=== PATIENT | male | born 1965 | race Caucasian/White ===

== ENCOUNTER 2025-04-02 06:17 | Day surgery (SDC) | payer BC, SELFPAY | END 2025-04-02 12:49 | disposition home or self-care (01) | LOC: GI 06:17 | PROVIDERS: ATTENDING PHYSICIAN Internal Medicine Gastroenterology | DX: D50.9 Iron deficiency anemia, unspecified (principal); K57.30 Diverticulosis of large intestine without perforation or abscess without bleeding; K64.8 Other hemorrhoids; K44.9 Diaphragmatic hernia without obstruction or gangrene; K29.70 Gastritis, unspecified, without bleeding; K63.5 Polyp of colon; K29.50 Unspecified chronic gastritis without bleeding; K31.9 Disease of stomach and duodenum, unspecified | CPT/HCPCS: 45380; 43239; 88305; 88342 ==

== ENCOUNTER 2025-05-08 20:31 | Emergency (ER) | payer BC, SELFPAY ==
[2025-05-08 20:33] VITALS: BP 192/118
[2025-05-08 21:07] LABS: Hematocrit 37.2 % (39.0-52.0); Hemoglobin 11.5 g/dL (13.0-18.0); Mean Corp Hgb Conc. 30.9 g/dL (33.0-37.0); Mean Corpuscular Volume 72.2 fL (80.0-94.0); Nucleated Red Blood Cells % 0 % (-); Platelet Count 248 10^3/uL (130-400); Red Cell Dist. Width 27.6 % (11.5-14.5)
[2025-05-08 21:08] LABS: ALT (SGPT) 20 U/L (0-50); AST (SGOT) 28 U/L (17-59); Albumin 4.4 g/dl (3.5-5.0); Alkaline Phosphatase 89 U/L (38-126); Blood Urea Nitrogen 25 mg/dl (9-20); Calcium 8.6 mg/dl (8.4-10.2); Carbon Dioxide 24 mmol/L (22-30); Chloride 106 mmol/L (98-107); Glucose 102 mg/dl (70-99); Potassium 4.2 mmol/L (3.5-5.1); Sodium 136 mmol/L (135-145); Total Protein 7.0 g/dl (6.3-8.2); eGFR > 60.00
[2025-05-08 21:18] LABS: Troponin I < 0.012 ng/ml
[2025-05-08 21:26] LABS: Anisocytosis 1+; Macrocytosis 1+; Microcytosis 1+; Normal RBC Morphology No
[2025-05-08 21:27] LABS: Ovalocytes Slight
--- NOTE | 2025-05-08 23:41 | ED.GENMED ---
History of Present Illness
General
Chief Complaint: Dizziness
Source: patient
Exam Limitations: none
Time Seen by Provider: 05/08/25 23:41
Nursing documentation reviewed up to this point in time: agreed with
History of Present Illness
History of Present Illness:
Note:
CHIEF COMPLAINT(S)
Dizziness and vertigo
HISTORY OF PRESENT ILLNESS
The patient is a 59-year-old male with a history of hypertension and anemia, presenting with dizziness and vertigo. The symptoms began around 6:37 PM with a sensation described as the room spinning and light-headedness. The patient attempted to
self-manage the symptoms by taking a decongestant (Claritin) and resting. He noted that the spinning sensation subsided, but the light-headedness persisted. He later went to bed at approximately 8:00 PM. Upon waking, the spinning sensation and
light-headedness recurred but eventually resolved, and the patient currently feels well with no lightheadedness or dizziness. This episode mirrors a similar event that occurred 15-20 years ago, which resolved spontaneously without medical
intervention. The patient reported a brief self-assessment using his [employer] blood pressure monitor, which showed elevated readings (around 156 systolic), which have since decreased.
He denies recent illness, chest pain, shortness of breath, or visual disturbances. He also reports having received a normal stress test result two weeks ago. No recent changes to the patients antihypertensive medication regimen (Losartan), with the
last medication adjustment involving timing changes. The patient is currently undergoing treatment for anemia with iron infusions, which ended in April. No recent significant blood pressure medication adjustments were reported, although he mentioned
a slight alteration in medication schedule. The patient denies neck pain, trouble swallowing, double vision, paresthesias in upper or lower extremities, difficulty ambulating. Patient reports that for several hours, he has been asymptomatic. He
denies any headaches. He states that he feels back to his normal self.
SOCIAL HISTORY
- The patient reports previous tobacco use but states he ceased using tobacco approximately four years ago.
- The patient consumes caffeine, specifically 6 ounces per household serving and has alcohol intake inconsistently, noted as not in the past week.
- The patient uses medical marijuana.
REVIEW OF SYSTEMS
See HPI
PHYSICAL EXAM
Nursing notes reviewed and vital signs reviewed.
General: Patient is well appearing and in no acute distress; non-toxic
Skin: Warm and dry, no rashes or lesions
Head: Normocephalic, atraumatic
Eyes: Sclera non-icteric. EOMs intact.
Cardiac: Regular rate and rhythm, no murmurs
Peripheral Vascular: No lower extremity swelling or edema
Pulm: Normal respiratory effort, no wheezes, rales, rhonchi
Abdomen: No abdominal tenderness to palpation
Neuro: CN II-XII intact, no focal neurologic deficits. Normal finger-nose, [id number]-ee-mekl testing. Normal gait. Normal speech.
Psychiatric: Appropriate mood and affect.
PROBLEM LIST
Acute:
- Vertigo/Dizziness resolved
- Elevated blood pressure (transient)
Chronic:
- Hypertension
- Anemia
PLAN
- Consider referral to vestibular therapy for potential inner ear issues if symptoms recur.
- Follow up with a neurologist or Ear, Nose, and Throat specialist for further evaluation.
- Patient advised to return to emergency room if symptoms such as severe dizziness, numbness, weakness, or difficulty swallowing occur.
- Monitor blood pressure and continue current hypertension management.
- Continue following treatment for anemia as previously prescribed.
DIFFERENTIAL DIAGNOSIS
The Differential Diagnosis includes, in no particular order and is not limited to:
1. Benign Paroxysmal Positional Vertigo
2. Vestibular Neuritis
3. Labyrinthitis
4. Orthostatic Hypotension
5. Transient Ischemic Attack
6. Meniere�s Disease
7. Anemia-related dizziness
8. Drug-induced dizziness
9. Hypertensive crisis
10. Dehydration
CHART REVIEW
Reviewed endoscopy procedure from 04/08/2025 patient seen for upper endoscopy was found to have a large hiatal hernia with mild inflammation characterized
Reviewed ER physician augmentation from 05/23/2013 patient seen for abdominal pain, reviewed discharge summary from , patient seen for excessive vertigo he was noted to have a severe headache as well, patient was given IV medications and IV
fluids and did start to feel better and he had an MRI of the brain which was performed and this revealed no evidence of acute infarct or abnormality his blood work was unremarkable and he was discharged
MDM/DISPOSITION
The patient is a 59-year-old male with a history of hypertension and anemia, presenting with dizziness and vertigo. This occurred for around 3 hours and has since resolved. Patient reports that at the time the symptoms were worse if he opened his
eyes and turned his head. Patient reports that he has been asymptomatic for a few hours now and has felt well while he has been in the ER. On physical exam he is well-appearing in no acute distress. He has no focal neurologic deficits he is
normal finger-nose, normal [id number] testing he demonstrates normal speech and normal gait. He initially was acutely hypertensive upon arrival however his blood pressure came down without acute intervention. His blood work shows mild anemia
which patient has a history of. He does have a mildly elevated BUN/creatinine ratio, did discuss hydration at home. He also had troponin which was done which was undetectable however he never had chest pain. He had a ECG which showed normal sinus
rhythm with no arrhythmia. Suspect patient's symptoms related to benign paroxysmal positional vertigo versus vestibular neuritis versus dehydration. Do not suspect acute posterior CVA. Discussed strict return precautions. Do not feel that CAT
scan head is indicated at this time and patient is feeling much better. Discussed case with my ED attending. Patient stable for discharge.
Past History
Past History
ED Past Medical History: None
ED Past Surgical History: Orthopedic
Social History
Tobacco: Non-smoker
Alcohol: None
Drug: None
Personal:
Living: with family
Review of Systems
Review of Systems
All Other Systems: ROS reviewed and negative except as documented in HPI and ROS
Phy Exam
Physical Exam
Physical Exam:
see hpi
Course
Orders/Labs/Results
Orders:
Orders
05/08/25 20:35
Electrocardiogram (*1) Urgent
Reason for Study: Chest Pain
Cardiac Monitoring- Treatment ONCE
EKG- Treatment ONCE
IV Insert/Care/Rem.- Treatment PRN
O2 Therapy [RESP] Urgent
Titrate/Wean O2 to maintain O2 sat greater than (%): 90
Special Instructions: Maintain sats >/=90%
Pulse Ox/spot Check [RESP] Urgent
Quantity: 1
Special Instructions: ON ROOM AIR
05/08/25 20:44
Complete Blood Count/With Diff Urgent
Comprehensive Metabolic Panel Urgent
Troponin I Urgent
Abnormal Lab Results
05/08/25
20:44
Hgb 11.5 L g/dL
(13.0-18.0)
Hct 37.2 L %
(39.0-52.0)
MCV 72.2 L fL
(80.0-94.0)
MCH 22.3 L pg
(27.0-31.0)
MCHC 30.9 L g/dL
(33.0-37.0)
RDW 27.6 H %
(11.5-14.5)
Absolute Neuts (auto) 6.7 H 10^3/uL
(1.4-6.5)
Neutrophils % 75.4 H %
(42.2-75.2)
Lymphocytes % 16.7 L %
(20.5-51.1)
BUN 25 H mg/dl
(9-20)
Glucose 102 H mg/dl
(70-99)
05/08/25 20:44
05/08/25 20:44
Vital Signs
Initial and Last Documented VS:
Initial Vital Signs
Temp Pulse Resp BP Pulse Ox
98.3 F 65 18 192/118 100
05/08/25 20:33 05/08/25 20:33 05/08/25 20:33 05/08/25 20:33 05/08/25 20:33
Last Documented Vital Signs
Temp Pulse Resp BP Pulse Ox
98.3 F 69 16 148/97 96
05/08/25 20:33 05/09/25 00:15 05/09/25 00:15 05/09/25 00:00 05/09/25 00:15
*Pulse Oximetry
SaO2: 100
Oxygen Mode of Delivery: Room air
Patient hypoxic: no
*Critical Care Note
Total Time (30-74mins, 75-104mins- exclusive of procedures): Not Applicable
ED Attending Note
-
Portions of this chart may have been created with voice recognition software.� Occasional wrong word or��sound alike� substitutions may have occurred due to the inherent limitations of voice recognition software.
Discharge Plan
Departure
Patient Disposition: Home (Routine Discharge)
Date of Disposition: 05/09/25
Time of Disposition: 00:16
Patient with high blood pressure during this ER visit?: Yes
Condition: Fair
Discharge Problem:
Dizziness
Instructions: Vertigo (a Type of Dizziness) (DC), BLOOD PRESSURE
Prescriptions:
No Action
acetaminophen 500 mg Tablet
1,000 mg PO Q6H PRN (Reason: pain)
naproxen sodium [Aleve] 220 mg Tablet
440 mg PO PRN PRN (Reason: pain)
Medical Marijuana
1 dose inhalation HS
Referrals:
Sofia Buckley MD [Non-Admitting Privileges, Neurology] - Call in 1-3 days for appt
Activity Restrictions/Additional Instructions:
Please continue to monitor your blood pressure at home and write down a log to bring to your primary care provider.
Your blood work is unremarkable. Please stay well-hydrated.
Please follow-up with your primary care provider with your scheduled appointment.
PLEASE RETURN TO THE EMERGENCY DEPARTMENT SHOULD YOU DEVELOP FAINTING SPELLS, HEADACHES, NOT INTRACTABLE NAUSEA OR VOMITING, DIFFICULTY AMBULATING, CONFUSION, WEAKNESS, NUMBNESS OR TINGLING IN YOUR EXTREMITIES, NECK PAIN, DOUBLE VISION, OR ANY OTHER
SIGNS OR SYMPTOMS WORRISOME TO YOU.
Interventions
Interventions:
*Risk Screen - Suicide Last Done: 05/08/25 20:33
*General Assessment Last Done: 05/08/25 23:41
*Neglect/Abuse Screening Last Done: 05/08/25 20:33
*ED- Fall Risk Assessment Last Done: 05/08/25 23:41
*ED COVID-19 Vaccine History Last Done: 05/08/25 23:41
*Nursing Disposition Last Done: 05/09/25 01:01
ED- Neurological Assessment Last Done: 05/08/25 23:41
ED- Cardiac Assessment Last Done: 05/08/25 23:41
ED Swallowing Screen Last Done: 05/08/25 23:41
Discharge Date and Time
Discharge Date/Time: 05/09/25 01:01
Print Language: [id number]
[2025-05-08 23:48] VITALS: BP 152/104
[2025-05-09] VITALS: BP 148/97
== END 2025-05-09 01:01 | disposition home or self-care (01) ==
LOC: EMR 20:31
PROVIDERS: EMERGENCY PHYSICIAN Emergency Medicine
DX: R42 Dizziness and giddiness (principal); I10 Essential (primary) hypertension; Z87.891 Personal history of nicotine dependence
CPT/HCPCS: 99284; 80053; 84484; 85025; 93005